=== PATIENT | male | born 1955 | race Caucasian/White ===

== ENCOUNTER → 2017-12-29 13:10 | Outpatient (CLI) | payer BC ==
[~2017-12-29 13:10] MED LIST: ACTOS15 MG PO; BUPROPION XL300 MG PO; COZAAR50 MG PO; FLOMAX0.4 MG PO; GLUCOPHAGE500 MG PO; INDOCIN-SR75 MG PO; LEVOTHYROXINE112 MCG PO; LIPITOR40 MG PO; LOZOL 2.5 MG T2.5 MG PO; PREDNISONE20 MG PO; TENORMIN50 MG PO; TRESIBA FL100 UNIT/1 SC; VITAMIN D250000 UNIT PO
[2018-02-02 12:34] VITALS: BMI 35.0
== END | disposition home or self-care (01) ==
LOC: D.MRI 13:10
DX: M54.16 Radiculopathy, lumbar region (principal)

== ENCOUNTER 2018-02-02 11:25 | Outpatient (CLI) | payer BC ==
[~2018-02-02] VITALS: Ht 185.4 cm; Wt 120.5 kg
--- NOTE | ~2018-02-02 | HEMODYNAMI ---
PATIENT:TAM BARROS MEDICAL RECORD: [id number] : 57 LOCATION:[facility] ADMISSION DATE: 02/02/18 Generatedon:02/02/201814:35 Patient name: TAM BARROS Patient #: [id number] SSN: : Date of study: 02/02/2018 Page: Of Hemodynamic Procedure Report Patient Data Patient Demographics Procedure consent was obtained First Name: TAM Gender: Male Last Name: PAPO : 1955 Patient #: [id number] Age: 63 year(s) Race: Unknown Additional ID: [id number] Contact details [address]: [address] [place] [address] State: [place] City: [place] Zip code: [address] Past Medical History Allergies Allergen Reaction Date Comments Reported IV contrast dye 02/02/2018 Admission Admission Data Admission Date: 02/02/2018 Admission Time: 11:25 Lab Results Lab Result Date: 02/02/2018 Lab Result Time: 0:00 Biochemistry Name Units Result Min Max BUN mg/dl 28 --(----)-* 7 18 Creatinine mg/dl 1.2 --(---*)-- 0.6 1.3 CBC Name Units Result Min Max Hemoglobin g/dl 12.8 -*(----)-- 13.5 17.5 Procedure Procedure Types Cath Procedure Diagnostic Procedure LHC LH w/Coronaries Sedation Charges Moderate Sedation up to 15 minutes Procedure Description Procedure Date Procedure Date: 02/02/2018 Procedure Start Time: 14:22 Procedure End Time: 14:35 Procedure Staff Name Function Josue Fuentes MD Performing Physician Lora Ahmadi RT Monitor Susan Miles RT Scrub Mika Valiente RN Nurse Procedure Data Cath Procedure Fluoroscopy Diagnostic fluoroscopy Total fluoroscopy Time: 2 time: 2 min min Diagnostic fluoroscopy Total fluoroscopy dose: 716 dose: 716 mGy mGy Contrast Material Contrast Material Type Amount (ml) Isovue 300 49 Entry Location Entry Primary Successful Side Size Upsize Upsize Entry Closure Horton ccessful Closure Location (Fr) 1 (Fr) 2 (Fr) Remarks Device Remarks Radial Right 6 Fr Mechanical TR band artery Short Compression Estimated blood loss: 10 ml Diagnostic catheters Device Type Used For End Catheter Placement DIAGNOSTIC Felipe 110cm Procedure 5Fr catheter ([id number]) Procedure Complications No complications Procedure Medications Medication Administration Route Dosage 0.9% NaCl I.V. 100 ml/hr Oxygen etCO2 Nasal cannula 2 l/min Heparin Flush Bag added to field 2 bags (1000units/500ml NS) Lidocaine 2% added to field 20 Radial Cocktail added to field 1 syringe (Verapomil 2mg/Nitro 400mcg/Heparin 1500units) Versed I.V. 2 mg Fentanyl I.V. 100 mcg Radial Cocktail I.A. 1 syringe (Verapomil 2mg/Nitro 400mcg/Heparin 1500units) Hemodynamics Rest Heart Rate: 60 (bpm) Pressure Samples Time Site Value (mmHg) Purpose Heart Use Rate(bpm) 14:25 LV 131/-5,14 Snapshot 68 14:26 AO 101/59(77) Pullback 67 14:26 LV 113/-4,12 Pullback 67 Gradients Valve Time Site 1 Site 2 Mean SEP/DFP Peak To Heart Use (mmHg) (sec/min) Peak Rate (mmHg) (bpm) Aortic 14:26 LV AO 15 7 12 67 113/-4,12 101/59(77) Calculations Valve P-P Mean Valve Index Valve Source Name Gradient Area Flow (cm2) Aortic 12 15 12 15 Snapshots Pre Cath Intra NCS Post Cath Vital Signs Time Heart Resp SPO2 etCO2 NIBP (mmHg) Rhythm Pain Sedation Rate (ipm) (%) (mmHg) Status Level (bpm) 14:17:01 59 14 95 0 142/84(119) NSR 0 (11) 10(A) , No pain 14:21:17 56 16 95 31.4 130/79(95) NSR 0 (11) 10(A) , No pain 14:25:33 67 14 93 34.4 114/66(88) NSR 0 (11) 10(A) , No pain 14:29:43 70 14 94 34.4 124/67(95) NSR 0 (11) 9(A) , No pain 14:33:55 60 15 92 33.7 115/67(86) NSR 0 (11) 9(A) , No pain Medications Time Medication Route Dose Verified Delivered Reason Notes Effectiveness by by 14:15:11 0.9% NaCl I.V. 100 Mika Mika Per ml/hr Rocco Valiente physician RN RN 14:15:20 Oxygen etCO2 2 l/min Mika Mika Per Nasal Rocco Valiente physician cannula RN RN 14:15:36 Heparin Flush added 2 bags Mika Mika used for Bag to Rocco Valiente procedure (1000units/500ml field RN RN NS) 14:15:50 Lidocaine 2% added 20ml Mika Mika for local to vial Lorigan Rocco anesthetic field RN RN 14:16:06 Radial Cocktail added 1 Mika Mika used for (Verapomil to syringe Rocco Valiente procedure 2mg/Nitro RN RN 400mcg/Heparin 1500units) 14:23:39 Versed I.V. 2 mg Mika Mika for sedation Rocco Valiente RN RN 14:23:47 Fentanyl I.V. 100 mcg Mika Mika for sedation Rocco Valiente RN RN 14:23:59 Radial Cocktail I.A. 1 Mika Josue for (Verapomil syringe Rocco Fuentes MD vasodilation 2mg/Nitro RN 400mcg/Heparin 1500units) Procedure Log Time Note 13:56:33 Signed procedure consent form obtained from patient. 13:56:53 Time tracking: Regular hours (M-F 7:00 - 5:00) 13:56:57 Plan of Care:Hemodynamics will remain stable., Cardiac rhythm will remain stable., Comfort level will be maintained., Respiratory function will remain adequate., Patient/ family verbilizes understanding of procedure., Procedure tolerated without complication., Recovers from procedure without complications.. 13:58:27 Lab Result : BUN 28 mg/dl 13:58:27 Lab Result : Creatinine 1.2 mg/dl 13:58:27 Lab Result : Hemoglobin 12.8 g/dl 13:58:39 Patient allergic to IV contrast dye 14:05:24 Susan Miles RT(R) sent for patient. Start room use. 14:05:31 Patient received from Pre/Post Procedure Room to [facility] Alert and oriented. Tansferred to table in Supine position. 14:06:04 Warm blankets applied, and shaun hugger turned on for patient comfort. 14:06:05 Correct patient and procedure confirmed by team. 14:15:11 0.9% NaCl 100 ml/hr I.V. was administered by Mika Valiente RN; Per physician; 14:15:20 Oxygen 2 l/min etCO2 Nasal cannula was administered by Mika Valiente RN; Per physician; 14:15:36 Heparin Flush Bag (1000units/500ml NS) 2 bags added to field was administered by Mika Valiente RN; used for procedure; 14:15:50 Lidocaine 2% 20ml vial added to field was administered by Mika Valiente RN; for local anesthetic; 14:15:57 Vital chart was started 14:16:06 Radial Cocktail (Verapomil 2mg/Nitro 400mcg/Heparin 1500units) 1 syringe added to field was administered by Mika Valiente RN; used for procedure; 14:18:58 ECG and BP/O2 sat monitors applied to patient. 14:19:00 Baseline sample Acquired. 14:19:04 Rhythm: sinus rhythm 14:19:06 Full Disclosure recording started 14:19:17 H&P Date Dictated: 01/22/2018 Within 30 days and on chart., H&P Addendum completed by physician on day of procedure. (MUST COMPLETE FOR ALL OUTPATIENTS). 14:19:18 Pre-procedure instructions explained to patient. 14:19:20 Family in waiting room. 14:19:22 Patient NPO since Midnight. 14:19:25 Is the patient allergic to Iodine/contrast media? Yes. 14:19:26 Was the patient premedicated? Yes 14:19:28 Is patient on blood thinner?No 14:19:32 Patient diabetic? No. 14:19:42 Previous problem with sedation/anesthesia? No ? 14:19:46 Snore? Yes 14:19:47 Sleep apnea? No 14:19:54 Patient pain scale 0/10 ?. 14:20:00 IV patent on arrival in left forearm with 0.9% NaCl at [facility]. 14:20:08 Lab results completed and on chart. 14:20:13 Right Radial & Right Groin area was prepped with chlora-prep and draped in sterile fashion 14:20:16 Physician paged 14:20:17 Physician arrived 14:20:17 --------ALL STOP TIME OUT------ 14:20:18 Final Timeout: patient, procedure, and site verified with staff and physician. All members of the team are in agreement. 14:20:20 Right Radial & Right Groin site verified by team. 14:20:23 Physical assessment completed. ASA score P 2 - A patient with mild systemic disease as per Josue Fuentes MD. 14:20:27 Sedation plan: IV Moderate Sedation Medication:Versed, Fentanyl 14:20:34 Use device set Radial Dx or PCI 14:20:40 ACIST Syringe (91325) opened to sterile field. 14:20:40 Medline Cath Pack ([id number]) opened to sterile field. 14:20:41 Bag Decanter (2002S) opened to sterile field. 14:20:41 DIAGNOSTIC WIRE .035 260cm J wire (589732) opened to sterile field. 14:20:41 ACIST Hand Control (60121) opened to sterile field. 14:20:42 ACIST Manifold (51743) opened to sterile field. 14:20:42 Tegaderm 4 x 4 (1626W) opened to sterile field. 14:20:44 MBrace Wrist Support ([id number]) opened to sterile field. 14:20:45 NEEDLE Cook 21G 4cm Radial (F66054) opened to sterile field. 14:20:50 SHEATH 6Fr Prelude Radial ([id number]) opened to sterile field. 14:22:03 Procedure started. 14:22:36 Zero performed for pressure channel P1 14:22:39 Zero performed for pressure channel P1 14:22:53 Local anesthetic to right radial artery with Lidocaine 2% by Josue Fuentes MD.INITIAL ACCESS ONLY 14:23:39 Versed 2 mg I.V. was administered by Mika Valiente RN; for sedation; 14:23:47 Fentanyl 100 mcg I.V. was administered by Mika Valiente RN; for sedation; 14:23:59 Radial Cocktail (Verapomil 2mg/Nitro 400mcg/Heparin 1500units) 1 syringe I.A. was administered by Josue Fuentes MD; for vasodilation; 14:24:18 A 6 Fr Short sheath was inserted into the Right Radial artery 14:25:40 A DIAGNOSTIC Felipe 110cm 5Fr catheter ([id number]) was advanced over the wire and used for Procedure. 14:25:42 LV angiography performed. 14:26:23 EF : 55 % 14::55 LCA angiography performed. 14:28:52 RCA angiography performed. 14:29:34 Catheter removed. 14:29:39 TR BAND Large ([id number]) opened to sterile field. 14:33:08 Sheath removed intact; hemostasis achieved with Mechanical Compression to the Right Radial artery. 14:33:10 Procedure ended.(Physican Out) 14:33:21 Fluoroscopy time 02.00 minutes. 14:33: Fluoroscopy dose: 716 mGy 14:33: Flurop Dose total: 716 14:33:41 Contrast amount:Isovue 300 49ml. 14:33:43 Sharps counted by scrub and verified by R.N. 14:33:45 TR band inflated with 10cc of air. 14:33:47 Insertion/operative site no bleeding no hematoma. 14:33:55 Post Procedure Pulses reassessed and unchanged 14:34:01 Post-procedure physical assessment completed. ASA score P 2 - A patient with mild systemic disease as per Lora Ahmadi RT(R). 14:34:06 Post procedure rhythm: unchanged. 14:34:10 Estimated blood loss: 10 ml 14:34:12 Post procedure instruction explained to patient.Patient verbalizes understanding. 14:34:20 Patient needs reinforcement of post procedure teaching. 14:34:36 Procedure type changed to Cath procedure, Diagnostic procedure, LHC, LHC w/Coronaries, Sedation Charges, Moderate Sedation up to 15 minutes 14:34:39 Procedure and supply charges have been captured, reviewed, submitted and are correct. 14:35:03 Procedure Complication : No complications 14:35:05 Vital chart was stopped 14:35:11 Report given to Pre/Post Procedure Room. 14:35:14 Patient transfered to Pre/Post Procedure Room with Stretcher. 14:35:17 Procedure ended. 14:35:17 Full Disclosure recording stopped 14:35:32 End room use (Document Last) Device Usage Item Name Manufacture Quantity Catalog Number Hospital Part Current M inimal Lot# / Charge Number Stock Stock Serial# Code ACIST Syringe Acist 1 47056 082956 941765 827307 2 0 (48833) WellnessFX Medline Cath Cardinal 1 [id number] 801672 89393 060078 5 [facility] ([id number]) Bag Decanter Microtek 1 2001S 099797 31953 355972 5 (2001S) [employer]. DIAGNOSTIC WIRE [place] 1 268466 992358 318927 783975 3 0 .035 260cm J wire (722945) ACIST Hand Acist 1 04014 082167 745994 201319 5 Control (06090) Medical Systems Inc ACIST Manifold Acist 1 92557 661130 719935 547059 5 (61086) Medical Systems Inc Tegaderm 4 x 4 3M 1 1626W 987917 817607 280714 5 (1626W) MBrace Wrist Advanced 1 140-0250-00 719547 93277 638813 5 Support Vascular ([id number]) Dynamics NEEDLE Cook 21G Cook Medical 1 E04003 326046 260618 642484 5 4cm Radial (F70676) SHEATH 6Fr Merit 1 [id number] 625364 441462 776074 5 Prelude Radial Medical ([id number]) DIAGNOSTIC Terumo 1 40-8399 220361 523722 529683 5 Felipe 110cm 5Fr catheter (387395) TR BAND Large Terumo 1 [id number] 754699 356938 947796 4 0 ([id number]) Signature Audit [place] Stage Time Signature Unsigned Intra-Procedure 02/02/2018 Lora Ahmadi 2:35:52 PM RT(R) Signatures Monitor : Lora Ahmadi Signature : RT Date : Time : [facility] [address] [place] [address]
[2018-02-02] MEDS ORDERED: PREDNISONE20 MG PO (12:19)
[2018-02-02] MEDS ORDERED: FLOMAX0.4 MG PO (12:19)
[2018-02-02] MEDS ORDERED: INDOCIN-SR75 MG PO (12:20)
[2018-02-02] MEDS ORDERED: LEVOTHYROXINE112 MCG PO (12:20)
[2018-02-02] MEDS ORDERED: LIPITOR40 MG PO (12:21)
[2018-02-02] MEDS ORDERED: TRESIBA FL100 UNIT/1 SC (12:21)
[2018-02-02] MEDS ORDERED: LOZOL 2.5 MG T2.5 MG PO (12:22)
[2018-02-02] MEDS ORDERED: GLUCOPHAGE500 MG PO (12:22)
[2018-02-02] MEDS ORDERED: ACTOS15 MG PO (12:22)
[2018-02-02] MEDS ORDERED: COZAAR50 MG PO (12:23)
[2018-02-02] MEDS ORDERED: TENORMIN50 MG PO (12:23)
[2018-02-02] MEDS ORDERED: BUPROPION XL300 MG PO (12:23)
[2018-02-02] MEDS ORDERED: VITAMIN D250000 UNIT PO (12:24)
[2018-02-02 12:34] VITALS: BP 132/66; Ht 185.4 cm; Wt 120.5 kg
[2018-02-02 12:53] LABS: BASOPHILS 0.1 % (0-2); EOSINOPHILS 0 % (0-7); HEMATOCRIT 36.6 % (42.0-54.0); HEMOGLOBIN 12.8 g/dL (13.5-17.5); IMMATURE GRANULOCYTES 0.3 % (0-5); LYMPHOCYTES 6.8 % (15-50); MCH 28.3 pg (26.0-34.0); MCV 80.8 fL (80.0-100.0); MEAN PLATELET VOLUME 10.2 fL (7.4-10.4); MONOCYTES 2.4 % (2-11); NEUTROPHILS 90.4 % (40-80); PLATELET COUNT 199 10x3/uL (130-400); RBC 4.53 10x6/uL (4.20-6.10); RDW 13.1 % (11.5-14.5); WBC 16.6 10x3/uL (4.8-10.8)
[2018-02-02 13:25] LABS: ANION GAP 15.8 mmol/L (8-16); CALCIUM 8.9 mg/dL (8.5-10.1); CARBON DIOXIDE 24.7 mmol/L (21.0-32.0); CREATININE - SERUM 1.2 mg/dL (0.6-1.3); POTASSIUM - SERUM 4.5 mmol/L (3.5-5.1)
== END 2018-02-02 16:48 | disposition home or self-care (01) ==
LOC: D.CATH 11:25
PROVIDERS: Internal Medicine Cardiovascular Disease
DX: I20.9 Angina pectoris, unspecified (principal); Z01.812 Encounter for preprocedural laboratory examination

== ENCOUNTER 2019-02-24 09:20 | Day surgery (SDC) | payer OTHER ==
[~2019-02-24] VITALS: Ht 185.4 cm; Wt 120.5 kg
[~2019-02-24 09:20] MED LIST changes: +BAYER CHEWABLE81 MG PO; +NOVOLOG100 UNIT/1 SC; +PROTONIX40 MG PO
[2019-02-24 09:46] VITALS: BP 117/70; BMI 35.0
[2019-02-24] MEDS ORDERED: HYDROCODON-ACE1 EA10 PO (12:31)
--- NOTE | 2019-02-24 13:30 | NUR ---
PT REPORTED NO NUMBNESS OR TINGLING EQUAL STRENGHTD ON ALL 4 EXTREMETIES
--- NOTE | 2019-02-24 14:03 | OP ---
PATIENT NAME: TAM BARROS MEDICAL RECORD: [id number] :57 LOCATION:[facility] ADMISSION DATE: SURGEON: CONNIE NICHOLS MD DATE OF OPERATION: 02/24/2019 PREOPERATIVE DIAGNOSIS: Lumbar spinal stenosis and foraminal stenosis, L4-L5, right. POSTOPERATIVE DIAGNOSIS: Lumbar spinal stenosis and foraminal stenosis, L4-L5, right. PROCEDURES: Lumbar laminotomy, medial facetectomy, and foraminotomy at L4-L5 on the right with METRx retractor. SURGEON: Connie Nichols MD DESCRIPTION AND TECHNIQUE: After induction of general endotracheal anesthesia, the patient was rolled prone on a Alvaro frame. Lumbar spine was prepped and draped in usual sterile fashion. Fluoroscopic x-ray and spinal needle localized the L4-L5 interspace on the right side. A series of dilators was used to advance a METRx retractor to the L4-L5 interspace on the right. The level was confirmed with fluoroscopic x-ray. A microscope and Midas Phoenix drill were used to perform laminotomy, medial facetectomy, and foraminotomy of L4-L5 on the right. Hypertrophied ligamentum flavum was removed with Cloward rongeurs. Further foraminotomy was carried out within the L4-L5 foramen and around the L5 pedicle. This confirmed that the L5 nerve root was decompressed well. Meticulous hemostasis was maintained throughout the wound. Wound was irrigated with copious amounts of Ancef irrigant solution. The retractor was removed. The fascia was closed with 2-0 Vicryl suture. The subdermal layer was closed with 3-0 Vicryl suture. The skin was closed with raffy. A sterile dressing was applied to the wound. The patient was awakened in good condition and taken to recovery. All counts were reported as correct. Estimated blood loss was minimal. TRANSINT:[id number] Voice Confirmation ID: [id number] DOCUMENT ID: [id number] CONNIE NICHOLS MD at 1403 CC: [id number] DICTATION DATE: 02/24/19 1320 UNDERWRITING CLERKS SUPERVISOR: 02/24/19 1357 [facility] [address] [place] [address]
--- NOTE | 2019-02-24 15:30 | NUR ---
1520-NORCO 10MG GIVEN FOR PAIN.
--- NOTE | 2019-02-24 17:25 | NUR ---
PATIENT UNABLE TO URINATE DESPITE MULTIPLE ATTEMPTS AND DESPITE IV AND PO INTAKE FLUID INTAKE. BLADDER SCAN SHOWS APPROX 653 ML IN BLADDER. MESSAGE LEFT FOR DR SHAW TO CALL DEPARTMENT REGARDING THIS. PATIENT HAS NO URGE TO URINATE
--- NOTE | 2019-02-24 17:50 | NUR ---
DR SHAW CALLS AND ORDERS IN AND OUT CATHETERIZATION AND OVERNIGHT OBSERVATION. THIS IS EXPLAINED TO PATIENT AND SPOUSE 1755 IN AND OUT CATHETERIZATION PERFORMED WITH 750 CC CLEAR YELLOW URINE OUTPUT. AWAITING ROOM ASSIGNMENT FOR OVERNIGHT ADMISSION
--- NOTE | 2019-02-24 19:14 | NUR ---
PATIENT LYING IN BED, AWAITING ROOM READINESS FOR TRANSFER TO MED/SURG. PATIENT AWAKE, ALERT, WATCHING TV. DENIES NEEDS OR COMPLAINTS. LUMBAR DRESSING WITH SMALL AMOUNT DRAINAGE THAT IS NOT SATURATED THROUGH.
--- NOTE | 2019-02-24 19:23 | NUR ---
REPORT CALLED TO CHARU BUTTS RN MED/SURG RECEIVING NURSE. PATIENT TRANSFERRED BY WHEELCHAIR TO ROOM 2214 IN STABLE UNCHANGED CONDITION
[2019-02-24 19:42] VITALS: BP 145/73; Ht 185.4 cm; Wt 120.5 kg
--- NOTE | 2019-02-24 19:58 | NUR ---
PT WAS RECEIVED FORM OUT PATIENT DEPT VIA W/C WITH AT THE BEDSIDE. DRESSING TO HIS BACK IS CLEAN DRY AND INTACT WITH SMALL AREA OF DRAINAGE CIRCLED. MD HAS OKED HIS HOME MEDS BUT HE HAS BROUGHT ALL HIS MEDS WITH HIM AND IS TAKING HIS OWN. HE DID NOT BRING HIS MELATONIN SO IT WAS ORDERED AND HE WILL RECIEVE THIS FROM US. HE IS DIABETIC AND HAS ALL HIS MEDS FOR THIS AND HIS GLUCOMETER. HE DOES NOT WANT US TO MANAGE IT AND HAS ALREADY TAKEN HIS HS INSULIN. WE WILL CONTINUE TO MONITOR HIM.
[2019-02-24 20:39] VITALS: BP 145/73
--- NOTE | 2019-02-24 23:50 | NUR ---
PT HAS BEEN CHECKED FREQUENTLY FOR VOIDING AND HAS BEEN VOIDING SMALL AMOUNTS SEVERAL TIMES. HE STATED THAT HE IS NOW VOIDING ABOUT 200CC AT A TIME AND HAS REFUSED TO BE CATHED. NO PROBLEMS NOTED.
[2019-02-25 00:39] VITALS: BP 118/63
[2019-02-25 04:40] VITALS: BP 114/61
[2019-02-25 08:14] VITALS: BP 112/63
--- NOTE | 2019-02-25 19:37 | MORECARE ---
CASE MANAGEMENT DISCHARGE SUMMARY PATIENT: TAM BARROS UNIT: [id number] ADM DATE: 02/24/19 AGE: 64 : 57 SEX: M ROOM/BED: D.2214 AUTHOR: WILLIE SULTANA PHYSICIAN: REFERRING PHYSICIAN: CONNIE SHAW MD DATE OF SERVICE: 02/25/19 Discharge Plan Patient Name: TAM BARROS Facility: [facility]:[place] : 1955 Planned Disposition: Anticipated Discharge Date: Discharge Date: 02/25/2019 Expected LOS: Initial Reviewer: [email or web address] Initial Review Date: 02/24/2019 Generated: 02/25/19 8:37 pm Patient Name: TAM BARROS Page [phone] at 1937 All edits/amendments must be made on the electronic document DICTATION DATE: 02/25/191936 FIRE EXTINGUISHER MECHANIC: WILL 02/25/191936 RPT#: [id number] DC DATE:02/25/19 STATUS: DIS IN [facility] [address] [facility] [place] [address] END OF REPORT
== END 2019-02-25 10:30 | disposition home or self-care (01) ==
LOC: OBSVTIME → D.OPS 09:20 → D.PAN 11:30 → D.OPS 11:30 → OBSVTIME 18:15 → D.SDCHOLD 18:15 → D.MS 19:25 → D.OPS 02-25 10:30 → D.MS 02-25 10:30
PROVIDERS: ATTEND Neurological Surgery
DX: M48.061 Spinal stenosis, lumbar region without neurogenic claudication (principal); E03.9 Hypothyroidism, unspecified; E11.9 Type 2 diabetes mellitus without complications; E78.5 Hyperlipidemia, unspecified; K21.9 Gastro-esophageal reflux disease without esophagitis; I10 Essential (primary) hypertension

== ENCOUNTER → 2019-11-14 | Emergency (ER) | payer OTHER ==
[~2019-11-14] VITALS: Ht 185.4 cm; Wt 120.5 kg
[~2019-11-14] MED LIST changes: +HYDROCODON-ACE1 EA10 PO
[2019-11-14 21:07] VITALS: Ht 185.4 cm; Wt 120.5 kg
[2019-11-14 23:01] VITALS: BP 154/79
== END | disposition home or self-care (01) ==
LOC: D.ER 21:03
DX: E11.65 Type 2 diabetes mellitus with hyperglycemia (principal); E11.40 Type 2 diabetes mellitus with diabetic neuropathy, unspecified; Z79.84 Long term (current) use of oral hypoglycemic drugs; Z79.4 Long term (current) use of insulin; I10 Essential (primary) hypertension; E07.9 Disorder of thyroid, unspecified